=== PATIENT | female | born 1970 | race Caucasian/White ===

== ENCOUNTER 2021-06-23 09:43 | Emergency (ER) | payer SELFPAY ==
[2021-06-23] VITALS (14 sets, daily range): BP systolic 114–147; BP diastolic 82–95; PULSE 75–90; RESP 13–26; O2SAT 90–98
--- NOTE | ~2021-06-23 | XR_ITS ---
EXAMINATION: XR chest 2V DATE: 06/23/2021 11:31 INDICATION: Cough and shortness of breath TECHNIQUE: PA and lateral views of the chest were obtained. COMPARISON: None FINDINGS: The lungs are clear with no focal airspace opacities, pulmonary edema, pleural effusion or pneumothor ax. The cardiomediastinal silhouette is normal. Mild to moderate midthoracic predominant spondylosis. IMPRESSION: 1. No acute cardiopulmonary disease. Reviewed, dictated and finalized at location A. [facility]
--- NOTE | 2021-06-23 10:32 | ECG_ITS ---
Measurements Intervals [place] Rate: 80 P: 70 ME: 161 QRS: 46 QRSD: 84 T: 56 QT: 356 QTc: 413 Interpretive Statements SINUS RHYTHM INCOMPLETE RIGHT BUNDLE BRANCH BLOCK BORDERLINE ECG Electronically Signed On 06-23-2021 13:26:03 [employer] by Will Sellers D.O.
--- NOTE | 2021-06-23 10:37 | ED.GENADULT ---
HPI - General Adult General Chief complaint: Shortness of Breath/Dyspnea Stated complaint: cough/fever Time Seen by Provider: 06/23/21 10:05 Source: patient Mode of arrival: ambulatory Limitations: no limitations History of Present Illness HPI narrative: Patient presents for evaluation of respiratory complaints. She indicates over the last 3 to 4 days she has had a productive cough of clear/brown sputum with associated shortness of breath. She reports Tmax of 99.6. She reports left sided posterior rib pain. She has had similar symptoms in the past with pneumonia. Denies chills, nausea, vomiting. Her currently has similar symptoms. She smoked 1.5 ppd. No personal hx of COVID. She did not receive COVID vaccine. She has been taking tylenol without significant improvement in her symptoms thereafter. Related Data Allergies Allergy/AdvReac Type Severity Reaction Status Date / Time tramadol Allergy Rash Verified 06/23/21 10:54 Review of Systems Review of Systems: CONSTITUTIONAL: Reports fever. Denies chills or sweats. EYES: Denies visual changes, redness, or discharge. ENT: Denies rhinorrhea, congestion, sore throat, or otalgia. CARDIOVASCULAR: Denies chest pain, palpitations, or edema. RESPIRATORY: Reports productive cough and SOB GASTROINTESTINAL: Denies abdominal pain, nausea, vomiting, or diarrhea. GENITOURINARY: Reports foul smelling urine. Denies dysuria or hematuria. SKIN: Denies rash or itching. MUSCULOSKELETAL: Reports back pain. Denies joint pain or myalgia. NEUROLOGIC: Denies headache, numbness, dizziness, or weakness. PSYCHIATRIC: Denies anxiety or depression. [facility] Past Medical History Medical History Tobacco use Surgical History Surgical History H/O: hysterectomy Family History Family History Father Esophageal cancer Social History Social History Smoking packs per day: 1.5 Smoking cigarettes per day: 30.0 Smoking status: Current every day smoker Tobacco type: cigarettes Alcohol intake: never Substance use: never Living arrangements: with family Gender identity (if verbalized by the patient): Female Sexual Orientation (if Verbalized by the Patient): Straight or Heterosexual Spiritual care concerns: No Exam Narrative: GENERAL: Well-appearing, well-nourished, and in no acute distress. HEAD: Normocephalic, atraumatic. EYES: PERRLA and EOMI. ENT: Nares clear, no rhinorrhea or epistaxis. Mucous membranes moist. Oropharynx without tonsillar hypertrophy exudate or other lesions. Bilateral TMs pearly graves nonbulging NECK: Supple. No adenopathy or masses. No carotid bruits or JVD CHEST: Diminished breath sounds throughout. Cough noted on exam. No respiratory distress. No wheezes rales or rhonchi HEART: Regular rate and rhythm. No murmur heard. Normal peripheral pulses. ABDOMEN: Soft, nontender, nondistended, normal active bowel sounds. EXTREMITIES: Normal range of motion. No edema. SKIN: Warm, dry, no rash. NEURO: No focal deficits. Alert and oriented x3. PSYCH: Normal mood and affect. Course Course Emergency Course: This is a 50-year-old female who presented with complaints of cough and shortness of breath. Chest x-ray was negative. Labs were fairly benign. She was given a nebulizer treatment and Solu-Medrol in the emergency department with improvement in her symptoms thereafter. I did offer to check a CT of her chest which she declined. I think this is reasonable as she is not hypoxic and not tachycardic. We did swab her for Covid. Urine appears contaminated but since she is symptomatic, we will treat with abx. She was instructed not to smoke. I suspect she has COPD based upon CO2, respiratory symptoms, and smoking hx. She should follow up outpatient for further evaluation and treatmen
[2021-06-23] MEDS: ALBUTEROL SULFATE NEB 2.5 MG/3 ML INH 3 MG INHALATION (10:46)
[2021-06-23] MEDS: IPRATROPIUM BR 0.02% INH SOLN 0.5 MG/2.5 ML VIAL INHALATION (10:46)
[2021-06-23] MEDS: methylPREDNISolone SOD SUCC 125 MG VIAL IV PUSH (11:05)
[2021-06-23 11:08] LABS: Basophils Absolute Auto 0.1 K/mm3 (0.0-0.1); Basophils Percent Auto 0.9 % (0.2-1.2); Eosinophils Absolute Auto 0.2 K/mm3 (0-0.3); Eosinophils Percent Auto 2.1 % (0-4.4); Hematocrit 44.5 % (37.0-47.0); Hemoglobin 14.8 g/dL (12.0-15.0); Immature Granulocyte Absolute 0.02 K/mm3 (0.00-0.031); Immature Granulocyte Percent A 0.2 % (0-0.5); Lymphocytes Absolute Auto 2.96 K/mm3 (0.9-3.2); Lymphocytes Percent Auto 36.7 % (18.3-44.2); Mean Corpuscular HGB Conc 33.3 g/dl (32-36); Mean Corpuscular Hemoglobin 31.2 pg (26-34); Mean Corpuscular Volume 93.9 fl (80-100); Mean Platelet Volume 9.1 fl (7.4-10.4); Monocytes Absolute Auto 0.8 K/mm3 (0.1-0.6); Monocytes Percent Auto 10.2 % (2.6-8.5); Neutrophils Percent Auto 49.9 % (45.5-73.1); Platelet Count Result 294 k/mm3 (150-375); Red Blood Count 4.74 M/mm3 (4.2-5.4); Red Cell Distribution Width 13.2 % (11.5-14.5); White Blood Count 8.1 K/mm3 (4.5-10.0)
[2021-06-23 11:34] LABS: Alanine Aminotransferase 14 U/L (4-35); Albumin Level 4.1 g/dL (3.5-5.1); Alkaline Phosphatase 63 U/L (38-126); Anion Gap 4 mmol/L (8-16); Aspartate Amino Transferase 25 U/L (14-36); Bilirubin,Total 0.3 mg/dL (0.2-1.3); Blood Urea Nitrogen 6 mg/dL (7-17); Calcium 9.2 mg/dL (8.4-10.2); Carbon Dioxide 31 mmol/L (22-30); Chloride 105 mmol/L (98-107); Estimated CRCL calculation 111 ml/min; Estimated Glomerular Filt Rate > 60; Glucose 90 mg/dL (65-110); Potassium 4.6 mmol/L (3.4-5.0); Sodium 140 mmol/L (137-145)
[2021-06-23 11:45] LABS: Troponin I < 0.012 ng/mL (0.000-0.034)
[2021-06-23 12:05] LABS: Add Urine Microscopic? YES; Appearance Urine Cloudy (Clear); Bilirubin Urine Negative (Negative); Blood Urine Negative (Negative); Color Urine Yellow (Yellow); Glucose Urine UA Negative (Negative); Ketones Urine Negative (Negative); Leukocyte Esterase Ur Negative LEU/UL (Negative); Mucus Urine Rare /lpf; Nitrate Urine Negative (Negative); Protein Urine Negative (Negative); Specific Grav Ur 1.018 (1.001-1.035); Squamous Epithelial Cell Urine Many /hpf (Few); Urobilinogen Urine Negative mg/dL (<2.0)
[2021-06-24 19:00] LABS: SARS-CoV-2 RNA PCR Negative
== END 2021-06-23 12:41 | disposition home or self-care (01) ==
PROVIDERS: Emergency Provider Nurse Practitioner
DX: J45.901 Unspecified asthma with (acute) exacerbation (principal); F17.210 Nicotine dependence, cigarettes, uncomplicated; Z20.822 Contact with and (suspected) exposure to COVID-19
CPT/HCPCS: 36415; 71046; 80053; 81001; 84484; 85025; 87804; 93005; 94640; 96374; 99284; C9803; J2930; U0003; U0005